=== PATIENT | male | born 1970 | race Caucasian/White ===

== ENCOUNTER 2024-06-09 17:13 | Inpatient (IN) | payer MEDICARE, OTHER ==
[~2024-06-09] VITALS: Ht 154.9 cm; Wt 83.0 kg
[~2024-06-09 17:13] MED LIST: LORA-259 PO; OLAN5TAB3 PO
[2024-06-09 17:42] LABS: BASOPHILS # (AUTO) 0.1 K/uL (0.0-0.2); BASOPHILS % (AUTO) 0.4 % (0.0-2.0); EOSINOPHILS # (AUTO) 0.3 K/uL (0.0-0.7); EOSINOPHILS % (AUTO) 1.1 % (0.0-6.0); HEMATOCRIT 26 % (39-51); HEMOGLOBIN 8.1 g/dL (13.5-17.5); LYMPHOCYTES # (AUTO) 0.8 K/uL (0.8-4.8); LYMPHOCYTES % (AUTO) 3.1 % (20.0-44.0); MEAN CORPUSCULAR HEMOGLOBIN 25 PG (26.0-33.0); MEAN CORPUSCULAR HGB CONC 32 g/dl (31.0-36.0); MEAN CORPUSCULAR VOLUME 78 fL (80-96); MONOCYTES # (AUTO) 1.1 K/uL (0.1-1.30); MONOCYTES % (AUTO) 4.5 % (2.0-12.0); NEUTROPHILS # (AUTO) 22.7 K/uL (1.8-8.9); NEUTROPHILS % (AUTO) 90.9 % (43.0-81.0); PLATELET COUNT (AUTO) 506 K/uL (150-450); RED BLOOD CELL COUNT(AUTO) 3.28 MIL/uL (4.5-6.0)
[2024-06-09] MEDS: IV NS 0.9% 1,000 ML BAG IV ONE (17:47)
[2024-06-09] MEDS: VANCOMYCIN 1 GM in IV D5W 250 ML IV ONE (17:48)
[2024-06-09] MEDS: PIPERACILLIN /TAZOBACTAM 3.375 G in IV D5W 50 ML IV ONE (17:49)
[2024-06-09] MEDS ORDERED: ACETAMINOPHEN ES 500 MG TABLET ONE (17:50)
[2024-06-09 17:53] LABS: CALCIUM, SERUM 8.5 mg/dL (8.5-10.1); CARBON DIOXIDE 29 mmol/L (21-32); CHLORIDE 107 mmol/L (98-107); CREATININE 1.4 mg/dL (0.6-1.3); GLUCOSE 97 mg/dL (74-106); POTASSIUM 4.8 mmol/L (3.5-5.1); SODIUM SERUM 144 mmol/L (136-145); UREA NITROGEN, BLOOD 47 mg/dL (7-18)
[2024-06-09] MEDS: ACETAMINOPHEN 325 MG TABLET PO ONE (17:53)
[2024-06-09 17:58] LABS: APPEARANCE,URINE TURBID (CLEAR); BILIRUBIN,URINE 1+ (NEGATIVE); BLOOD, URINE 3+ Ery/uL (NEGATIVE); COLOR,URINE DARK YELLOW (YELLOW); INR 1.06 (0.91-1.10); KETONES,URINE NEGATIVE (NEGATIVE); LEUKOCYTE ESTERASE ,URINE 3+ (NEGATIVE); NITRITE, URINE NEGATIVE (NEGATIVE); PARTIAL THROMBOPLASTIN TIME 26.5 SEC (24.3-34.3); PH,URINE 8.5 (5.0-8.0); PROTEIN,URINE 3+ mg/dl (NEGATIVE); PROTHROMBIN TIME 11.2 SECS (9.2-11.1); UGLUCOSE NEGATIVE (NEGATIVE); UROBILINOGEN,URINE 0.2 EU/dL (0.2)
[2024-06-09 17:59] LABS: ALANINE AMINOTRANSFERASE 10 U/L (12-78); ALBUMIN 1.7 g/dL (3.4-5.0); ALKALINE PHOSPHATASE 112 U/L (46-116); ASPARTATE AMINOTRANSFERASE 16 U/L (15-37); BILIRUBIN,DIRECT 0.1 mg/dL (0.0-0.2); BILIRUBIN,TOTAL 0.2 mg/dL (0.2-1.0); TOTAL PROTEIN, SERUM 7.3 g/dL (6.4-8.2)
[2024-06-09 18:01] LABS: LACTIC ACID 1.4 mmol/L (0.4-2.0)
[2024-06-09 18:09] LABS: ADD URINE CULTURE YES; BACTERIA,URINE 2+ /HPF (None Seen); RBC,URINE 81-100 /HPF (0-2); WBC,URINE 21-50 /HPF (0-3)
[2024-06-09 18:10] LABS: MUCUS,URINE Few /LPF (None Seen); SQUAMOUS EPITHELIAL CELL,UR None Seen /HPF (None Seen)
[2024-06-09 18:32] LABS: ABG BASE EXCESS -0.5 mmol/L (-2.0-3.0); ABG OXYGEN SATURATION 98.3 % (94.0-98.0); ABG PCO2 36.1 mmHg (35.0-48.0); ABG PH 7.433 (7.350-7.450); ABG PO2 116.8 mmHg (83.0-108.0); ABG TOTAL HEMOGLOBIN 8.3 G/dL (13.5-17.5); COHb 0.2 % (0.5-1.5); MetHb 0.2 % (0.0-1.5); O2Hb 97.9 % (94.0-97.0); PEEP,BG 5 cm H2O; SITE, ABG RIGHT RADIAL; VT, ABG 450 mL
[2024-06-09] MEDS ORDERED: AMIN30LI2 GT (19:58)
[2024-06-09] MEDS ORDERED: UPAD15TA GT (19:58)
[2024-06-09] MEDS ORDERED: BETH50TA2 GT (19:58)
[2024-06-09] MEDS ORDERED: BACL5TAB GT (19:58)
[2024-06-09] MEDS ORDERED: FERR220E2 GT (19:58)
[2024-06-09] MEDS ORDERED: MULT9LIQ6 GT (19:58)
[2024-06-09] MEDS ORDERED: ARGI1POW13 GT (19:58)
[2024-06-09] MEDS ORDERED: ACET160L44 GT ×2 (19:58)
[2024-06-09] MEDS ORDERED: CITR30SO GT (19:58)
[2024-06-09] MEDS ORDERED: OXYC15TA2 GT (19:58)
[2024-06-09] MEDS ORDERED: ASCO500L2 GT (19:58)
[2024-06-09] MEDS ORDERED: LEVE500S9 GT (19:58)
[2024-06-09] MEDS ORDERED: MIDO10TA GT (19:58)
[2024-06-09] MEDS ORDERED: ONDA4TAB5 GT (19:58)
[2024-06-09] MEDS ORDERED: LEVO75TA7 GT (19:58)
[2024-06-09] MEDS ORDERED: LACT1CAP72 GT (19:58)
[2024-06-09] MEDS ORDERED: FINA5TAB11 GT (19:58)
[2024-06-09] MEDS ORDERED: FAMO40OR5 GT (19:58)
[2024-06-09] MEDS ORDERED: DIPH25CA83 GT (19:58)
[2024-06-09] MEDS ORDERED: PSYL0.4C2 PO (19:58)
[2024-06-09] MEDS ORDERED: ATOR20TA GT (19:58)
[2024-06-09] MEDS ORDERED: MESA500C GT (19:58)
[2024-06-09] MEDS ORDERED: METO25TA6 GT (19:58)
[2024-06-09] MEDS ORDERED: BISA10SU11 RC (19:58)
[2024-06-09] MEDS ORDERED: PANT40SU2 GT (19:58)
[2024-06-09] MEDS ORDERED: MAGNESIUM HYDROXIDE 30 ML UDC PO PRN (21:30)
[2024-06-09] MEDS ORDERED: ACETAMINOPHEN 650 MG/SUPP.RECT RC PRN (21:30)
[2024-06-09] MEDS ORDERED: Z GUARD REMEDY 4 OZ OINT TP PRN (21:30)
[2024-06-09] MEDS ORDERED: MAG HYDROX/AL HYDROX/SIMETH 30 ML UDC PO PRN (21:30)
[2024-06-09] MEDS ORDERED: ALBUTEROL FS 2.5 MG/3 ML VIAL.NEB NEB PRN (23:00)
[2024-06-09] MEDS ORDERED: MIDODRINE HCL (5MG) 5 MG TABLET GT PRN (23:30)
[2024-06-09 23:51] LABS: HEMOGLOBIN 8.2 g/dL (13.5-17.5)
[2024-06-09] MEDS: VANCOMYCIN 1 GM /D5W 250 ML PB IV ONE (23:54)
[2024-06-10] VITALS (14 sets, daily range): BP systolic 127–145; BP diastolic 66–94; TEMP 97.8–100.1; O2SAT 98–100
[2024-06-10] MEDS: VANCOMYCIN 750 MG in IV D5W 250 ML IV ONE (00:17)
[2024-06-10] MEDS: PIPERACI/TAZO 3.375GM/D5W 50ML PB IV ONE (02:05)
[2024-06-10] MEDS: ZOSYN IVPB 3.375 G in IV D5W 50ml IV ONE (02:19)
[2024-06-10] MEDS: ACETAMINOPHEN 650 MG/20.3 ML UDC GT PRN (02:45)
[2024-06-10] MEDS: FERROUS SULFATE UDC 300 MG/5 ML UDC GT SCH (04:35)
[2024-06-10] MEDS: METOPROLOL TARTRATE 25 MG TABLET GT SCH (04:37)
[2024-06-10] MEDS: ASCORBIC ACID 500 MG TABLET GT SCH (04:37)
[2024-06-10 05:47] LABS: ABG BASE EXCESS 0.3 mmol/L (-2.0-3.0); ABG OXYGEN SATURATION 96.8 % (94.0-98.0); ABG PCO2 33.8 mmHg (35.0-48.0); ABG PH 7.468 (7.350-7.450); ABG PO2 87.9 mmHg (83.0-108.0); ABG TOTAL HEMOGLOBIN 7.4 G/dL (13.5-17.5); COHb 0.1 % (0.5-1.5); MetHb 0.4 % (0.0-1.5); O2Hb 96.3 % (94.0-97.0); SITE, ABG RIGHT RADIAL; VT, ABG 450 mL
[2024-06-10 07:15] LABS: EOSINOPHILS # (AUTO) 0.3 K/uL (0.0-0.7); LYMPHOCYTES # (AUTO) 0.5 K/uL (0.8-4.8); MONOCYTES # (AUTO) 0.7 K/uL (0.1-1.30); MONOCYTES % (AUTO) 4.9 % (2.0-12.0)
[2024-06-10 07:20] LABS: BASOPHILS % (AUTO) 0.3 % (0.0-2.0); EOSINOPHILS % (AUTO) 2.2 % (0.0-6.0); LYMPHOCYTES % (AUTO) 3.7 % (20.0-44.0); MEAN CORPUSCULAR HEMOGLOBIN 26 PG (26.0-33.0); MEAN CORPUSCULAR HGB CONC 33 g/dl (31.0-36.0); MEAN CORPUSCULAR VOLUME 80 fL (80-96); NEUTROPHILS # (AUTO) 12.6 K/uL (1.8-8.9); NEUTROPHILS % (AUTO) 88.9 % (43.0-81.0); PLATELET COUNT (AUTO) 373 K/uL (150-450); RED BLOOD CELL COUNT(AUTO) 2.62 MIL/uL (4.5-6.0); RED CELL DISTRIBUTION WIDTH 19.7 % (11.5-15.0); WHITE BLOOD COUNT (AUTO) 14.2 K/uL (4.3-11.0)
[2024-06-10] MEDS ORDERED: PANTOPRAZOLE 40 MG TABLET.DR PO SCH (07:30)
[2024-06-10 07:48] LABS: CALCIUM, SERUM 8.2 mg/dL (8.5-10.1); CREATININE 1.5 mg/dL (0.6-1.3); MAGNESIUM 1.9 mg/dL (1.8-2.4); PHOSPHORUS 3.8 mg/dL (2.5-4.9); POTASSIUM 4.2 mmol/L (3.5-5.1)
[2024-06-10 07:56] LABS: ALBUMIN 1.3 g/dL (3.4-5.0)
[2024-06-10 07:58] LABS: HEMATOCRIT 21 % (39-51); HEMOGLOBIN 6.8 g/dL (13.5-17.5)
[2024-06-10 08:06] LABS: THYROID STIMULATING HORMONE 3.47 uIU/mL (0.358-3.74)
[2024-06-10] MEDS: CEFEPIME 2 GM in IV D5W 100 ML IV SCH (08:24)
[2024-06-10] MEDS: FINASTERIDE (5 MG) 5 MG TABLET GT SCH (08:25)
[2024-06-10] MEDS: FUROSEMIDE 40 MG/4 ML VIAL IV SCH (08:25)
[2024-06-10] MEDS: BACLOFEN (10 MG) 10 MG TABLET GT SCH (08:25)
[2024-06-10] MEDS: PANTOPRAZOLE 40 MG/PACK PACK GT SCH (08:25)
[2024-06-10] MEDS: LEVOTHYROXINE SODIUM 75 MCG TABLET GT SCH (08:25)
[2024-06-10] MEDS: MULTIVIT W/MINERALS 1 TAB TABLET GT SCH (08:25)
[2024-06-10] MEDS: LACTOBACILLUS RHAMNOSUS GG 1 EACH CAP.SPRINK GT SCH (08:25)
[2024-06-10] MEDS: LEVETIRACETAM SOL (5 ML) 100 MG/ML UDC GT SCH (08:25)
[2024-06-10] MEDS: ARGININE/GLUTAMINE/CALCIUM BMB 1 EACH POWD.PACK GT SCH (08:27)
[2024-06-10] MEDS: BETHANECHOL CHLORIDE (25 MG) 25 MG TABLET GT SCH (09:00)
[2024-06-10] MEDS ORDERED: UPADACITINIB 45 MG GT SCH (09:00)
[2024-06-10] MEDS ORDERED: MESALAMINE 500 MG CAPSULE.ER PO SCH (09:00)
[2024-06-10 09:24] LABS: BASOPHILS % (MANUAL) 0 % (0.0-2.0); EOSINOPHILS % (MANUAL) 3 % (0-4); LYMPHOCYTES % (MANUAL) 2 % (16-48); MONOCYTES % (MANUAL) 5 % (0-11.0); NEUTROPHILS % (MANUAL) 90 (42-76); PLATELET ESTIMATE ADEQUATE
[2024-06-10 09:25] LABS: ANISOCYTOSIS 1+; ROULEAUX 1+
[2024-06-10] MEDS ORDERED: PIPERACILLIN /TAZOBACTAM 3.375 G in IV D5W 100 ML IV SCH (10:00)
[2024-06-10] MEDS: THERAHONEY GEL 1.5 OZ TUBE TP SCH (10:16)
[2024-06-10] MEDS ORDERED: VANCOMYCIN 750 MG in IV D5W 250 ML IV SCH (12:00)
[2024-06-10 12:47] LABS: HIV-1 p24 ANTIGEN NON REACTIVE (NONREACTIVE); HIV-1/2 ANTIBODY NON REACTIVE (NONREACTIVE)
[2024-06-10 13:03] LABS: OCCULT BLOOD STOOL NEGATIVE (NEGATIVE)
[2024-06-10] MEDS ORDERED: MAGNESIUM HYDROXIDE 30 ML UDC GT PRN (16:14)
[2024-06-10] MEDS ORDERED: MAG HYDROX/AL HYDROX/SIMETH 30 ML UDC GT PRN (16:14)
[2024-06-10 18:15] LABS: HEMOGLOBIN 7.3 g/dL (13.5-17.5)
[2024-06-10] MEDS: ATORVASTATIN 10 MG TABLET GT SCH (21:21)
[2024-06-10] MEDS: JEVITY 1.2 CAL 1,000 ML BOTTLE GT PRN (21:56)
[2024-06-10 23:20] LABS: HEMOGLOBIN 8.3 g/dL (13.5-17.5)
[2024-06-11] VITALS: BP 144/89; TEMP 98.8; O2SAT 100
[2024-06-11 03:06] LABS: FOLIC ACID > 20.0 ng/mL (>3.0)
[2024-06-11 04:00] VITALS: BP 148/90; TEMP 99; O2SAT 100
[2024-06-11 07:19] LABS: BASOPHILS % (AUTO) 0.4 % (0.0-2.0); EOSINOPHILS # (AUTO) 0.3 K/uL (0.0-0.7); EOSINOPHILS % (AUTO) 3.4 % (0.0-6.0); HEMATOCRIT 27 % (39-51); HEMOGLOBIN 8.6 g/dL (13.5-17.5); LYMPHOCYTES # (AUTO) 0.6 K/uL (0.8-4.8); LYMPHOCYTES % (AUTO) 6.1 % (20.0-44.0); MEAN CORPUSCULAR HEMOGLOBIN 26 PG (26.0-33.0); MEAN CORPUSCULAR HGB CONC 32 g/dl (31.0-36.0); MEAN CORPUSCULAR VOLUME 80 fL (80-96); MONOCYTES # (AUTO) 0.7 K/uL (0.1-1.30); MONOCYTES % (AUTO) 6.8 % (2.0-12.0); NEUTROPHILS # (AUTO) 8.1 K/uL (1.8-8.9); NEUTROPHILS % (AUTO) 83.3 % (43.0-81.0); PLATELET COUNT (AUTO) 451 K/uL (150-450); RED BLOOD CELL COUNT(AUTO) 3.36 MIL/uL (4.5-6.0); RED CELL DISTRIBUTION WIDTH 20.8 % (11.5-15.0); WHITE BLOOD COUNT (AUTO) 9.7 K/uL (4.3-11.0)
[2024-06-11 07:42] LABS: BILIRUBIN,TOTAL 0.4 mg/dL (0.2-1.0); CALCIUM, SERUM 8.4 mg/dL (8.5-10.1); CREATININE 1.6 mg/dL (0.6-1.3); PHOSPHORUS 4.1 mg/dL (2.5-4.9); POTASSIUM 3.9 mmol/L (3.5-5.1); TOTAL PROTEIN, SERUM 6.6 g/dL (6.4-8.2)
[2024-06-11 07:44] LABS: ALBUMIN 1.4 g/dL (3.4-5.0)
[2024-06-11 08:00] VITALS: BP 149/92; TEMP 99.5; O2SAT 98
[2024-06-11] MEDS: VANCOMYCIN HCL 1.25 GM in IV D5W 250 ML IV SCH (08:17)
[2024-06-11 12:00] VITALS: BP 144/95; TEMP 99; O2SAT 98
[2024-06-11 16:00] VITALS: BP 160/92; TEMP 98.4; O2SAT 97
[2024-06-11] MEDS: ONDANSETRON HCL/PF 4 MG/2 ML VIAL IVP PRN (17:19)
[2024-06-11 20:13] VITALS: BP 146/88; TEMP 98.2; O2SAT 97
[2024-06-11] MEDS: MUPIROCIN OINT 2% 22 GM TUBE NS SCH (21:14)
[2024-06-12] VITALS (7 sets, daily range): BP systolic 127–165; BP diastolic 77–97; TEMP 97.7–99.1; O2SAT 99–100
[2024-06-12 04:08] LABS: PTH, INTACT 25 pg/mL (15-65)
[2024-06-12 06:37] LABS: BASOPHILS % (AUTO) 0.4 % (0.0-2.0); EOSINOPHILS # (AUTO) 0.3 K/uL (0.0-0.7); HEMATOCRIT 29 % (39-51); HEMOGLOBIN 9.5 g/dL (13.5-17.5); LYMPHOCYTES # (AUTO) 0.7 K/uL (0.8-4.8); LYMPHOCYTES % (AUTO) 6.1 % (20.0-44.0); MEAN CORPUSCULAR HEMOGLOBIN 26 PG (26.0-33.0); MEAN CORPUSCULAR HGB CONC 32 g/dl (31.0-36.0); MEAN CORPUSCULAR VOLUME 81 fL (80-96); MONOCYTES # (AUTO) 0.8 K/uL (0.1-1.30); MONOCYTES % (AUTO) 7.6 % (2.0-12.0); NEUTROPHILS # (AUTO) 8.9 K/uL (1.8-8.9); NEUTROPHILS % (AUTO) 82.9 % (43.0-81.0); PLATELET COUNT (AUTO) 444 K/uL (150-450); RED BLOOD CELL COUNT(AUTO) 3.62 MIL/uL (4.5-6.0); RED CELL DISTRIBUTION WIDTH 20.4 % (11.5-15.0); WHITE BLOOD COUNT (AUTO) 10.7 K/uL (4.3-11.0)
[2024-06-12 07:00] LABS: CALCIUM, SERUM 8.6 mg/dL (8.5-10.1); CREATININE 1.6 mg/dL (0.6-1.3); POTASSIUM 3.5 mmol/L (3.5-5.1)
[2024-06-12] MEDS: hydrALAZINE HCL IV 20 MG VIAL IV PRN (08:57)
[2024-06-12] MEDS ORDERED: MUPIROCIN OINT 2% 22 GM TUBE TP SCH (09:00)
[2024-06-13] VITALS: BP 157/91; TEMP 98.1; O2SAT 100
[2024-06-13 04:00] VITALS: BP 159/93; TEMP 98.5; O2SAT 99
[2024-06-13 07:23] LABS: BASOPHILS % (AUTO) 0.3 % (0.0-2.0); EOSINOPHILS # (AUTO) 0.4 K/uL (0.0-0.7); EOSINOPHILS % (AUTO) 3.5 % (0.0-6.0); HEMATOCRIT 29 % (39-51); HEMOGLOBIN 9.3 g/dL (13.5-17.5); LYMPHOCYTES # (AUTO) 0.9 K/uL (0.8-4.8); LYMPHOCYTES % (AUTO) 7.8 % (20.0-44.0); MEAN CORPUSCULAR HEMOGLOBIN 26 PG (26.0-33.0); MEAN CORPUSCULAR HGB CONC 32 g/dl (31.0-36.0); MEAN CORPUSCULAR VOLUME 81 fL (80-96); MONOCYTES # (AUTO) 0.8 K/uL (0.1-1.30); MONOCYTES % (AUTO) 6.9 % (2.0-12.0); NEUTROPHILS # (AUTO) 9.3 K/uL (1.8-8.9); NEUTROPHILS % (AUTO) 81.5 % (43.0-81.0); PLATELET COUNT (AUTO) 484 K/uL (150-450); RED BLOOD CELL COUNT(AUTO) 3.58 MIL/uL (4.5-6.0); WHITE BLOOD COUNT (AUTO) 11.5 K/uL (4.3-11.0)
[2024-06-13 07:30] LABS: CALCIUM, SERUM 8.6 mg/dL (8.5-10.1); CREATININE 1.5 mg/dL (0.6-1.3); POTASSIUM 3.6 mmol/L (3.5-5.1)
[2024-06-13 08:00] VITALS: BP 166/88; TEMP 99.5; O2SAT 100
[2024-06-13 12:00] VITALS: BP 137/81; TEMP 100.2; O2SAT 100
[2024-06-13 16:00] VITALS: BP 162/87; TEMP 97.9; O2SAT 100
[2024-06-13] MEDS: CEFEPIME 2 GM in IV D5W 100 ML IV SCH (16:17)
[2024-06-13 20:00] VITALS: BP 115/60; TEMP 98.1; O2SAT 97
[2024-06-14] VITALS: BP 121/72; TEMP 98.5; O2SAT 98
[2024-06-14 04:00] VITALS: BP 114/70; TEMP 97.8; O2SAT 99
[2024-06-14 08:00] VITALS: BP 154/74; TEMP 99.3; O2SAT 100
[2024-06-14 08:24] LABS: BASOPHILS % (AUTO) 0.2 % (0.0-2.0); EOSINOPHILS # (AUTO) 0.4 K/uL (0.0-0.7); EOSINOPHILS % (AUTO) 2.4 % (0.0-6.0); HEMATOCRIT 29 % (39-51); HEMOGLOBIN 9.5 g/dL (13.5-17.5); MEAN CORPUSCULAR HEMOGLOBIN 26 PG (26.0-33.0); MEAN CORPUSCULAR HGB CONC 32 g/dl (31.0-36.0); MEAN CORPUSCULAR VOLUME 81 fL (80-96); MONOCYTES # (AUTO) 1.1 K/uL (0.1-1.30); MONOCYTES % (AUTO) 6.5 % (2.0-12.0); NEUTROPHILS # (AUTO) 13.8 K/uL (1.8-8.9); NEUTROPHILS % (AUTO) 84.9 % (43.0-81.0); PLATELET COUNT (AUTO) 476 K/uL (150-450); RED BLOOD CELL COUNT(AUTO) 3.66 MIL/uL (4.5-6.0); RED CELL DISTRIBUTION WIDTH 21.3 % (11.5-15.0); WHITE BLOOD COUNT (AUTO) 16.2 K/uL (4.3-11.0)
[2024-06-14 08:43] LABS: CALCIUM, SERUM 8.6 mg/dL (8.5-10.1); CREATININE 1.6 mg/dL (0.6-1.3); POTASSIUM 3.8 mmol/L (3.5-5.1)
[2024-06-14 12:00] VITALS: BP 131/79; TEMP 99.5; O2SAT 98
[2024-06-14 16:00] VITALS: BP 137/79; TEMP 99.2; O2SAT 99
[2024-06-14 20:00] VITALS: BP 98/71; TEMP 98.6; O2SAT 99
[2024-06-15] VITALS (8 sets, daily range): BP systolic 100–126; BP diastolic 65–93; TEMP 97.7–100; O2SAT 97–100
[2024-06-15 06:07] LABS: *SPE A/G RATIO 0.4 (0.7-1.7); *SPE ALBUMIN 1.7 g/dL (2.9-4.4); *SPE ALPHA-1-GLOBULIN 0.5 g/dL (0.0-0.4); *SPE ALPHA-2-GLOBULIN 1.2 g/dL (0.4-1.0); *SPE GLOBULIN, TOTAL 4.2 g/dL (2.2-3.9); *SPE M-SPIKE Not Observed g/dL (Not Observed); *SPE PROTEIN TOTAL 5.9 g/dL (6.0-8.5); *SPEGAMMA GLOBULIN 1.5 g/dL (0.4-1.8)
[2024-06-15 07:09] LABS: VITAMIN B1 THIAMINE,WB 268.1 nmol/L (66.5-200.0)
[2024-06-15 07:16] LABS: BASOPHILS # (AUTO) 0.1 K/uL (0.0-0.2); BASOPHILS % (AUTO) 0.5 % (0.0-2.0); EOSINOPHILS # (AUTO) 0.4 K/uL (0.0-0.7); EOSINOPHILS % (AUTO) 1.9 % (0.0-6.0); HEMATOCRIT 30 % (39-51); HEMOGLOBIN 9.7 g/dL (13.5-17.5); LYMPHOCYTES # (AUTO) 1.3 K/uL (0.8-4.8); LYMPHOCYTES % (AUTO) 7.1 % (20.0-44.0); MEAN CORPUSCULAR HEMOGLOBIN 26 PG (26.0-33.0); MEAN CORPUSCULAR HGB CONC 32 g/dl (31.0-36.0); MEAN CORPUSCULAR VOLUME 82 fL (80-96); MONOCYTES # (AUTO) 1.3 K/uL (0.1-1.30); MONOCYTES % (AUTO) 7.1 % (2.0-12.0); NEUTROPHILS # (AUTO) 15.5 K/uL (1.8-8.9); NEUTROPHILS % (AUTO) 83.4 % (43.0-81.0); PLATELET COUNT (AUTO) 460 K/uL (150-450); RED CELL DISTRIBUTION WIDTH 21.7 % (11.5-15.0); WHITE BLOOD COUNT (AUTO) 18.6 K/uL (4.3-11.0)
[2024-06-15] MEDS ORDERED: VANCOMYCIN HCL 1.25 GM in IV D5W 250 ML IV ONE (07:30)
[2024-06-15 07:31] LABS: CALCIUM, SERUM 9.1 mg/dL (8.5-10.1); CREATININE 1.6 mg/dL (0.6-1.3)
[2024-06-15] MEDS ORDERED: TIGECYCLINE 100 MG in IV D5W 100 ML IV SCH (09:30)
[2024-06-15] MEDS: MEROPENEM 1 G in IV NS 0.9% 100 ML IV SCH (09:50)
[2024-06-15] MEDS: IV 1/2NS 1000 ML 1,000 ML IV PRN (13:27)
[2024-06-15 13:51] LABS: APPEARANCE,URINE SLIGHTLY CLOUDY (CLEAR); BILIRUBIN,URINE NEGATIVE (NEGATIVE); BLOOD, URINE 3+ Ery/uL (NEGATIVE); COLOR,URINE YELLOW (YELLOW); KETONES,URINE 1+ mg/dL (NEGATIVE); LEUKOCYTE ESTERASE ,URINE TRACE (NEGATIVE); NITRITE, URINE NEGATIVE (NEGATIVE); PROTEIN,URINE 2+ mg/dl (NEGATIVE); UGLUCOSE NEGATIVE (NEGATIVE); UROBILINOGEN,URINE 0.2 EU/dL (0.2)
[2024-06-15 14:01] LABS: BACTERIA,URINE Moderate /HPF (None Seen); SQUAMOUS EPITHELIAL CELL,UR None Seen /HPF (None Seen)
[2024-06-15 14:02] LABS: ADD URINE CULTURE YES
[2024-06-15 14:04] LABS: CALCIUM OXALATE CRYSTALS,UR Moderate /HPF (None Seen)
[2024-06-15 20:06] LABS: METHYLMALONIC ACID 447 nmol/L (0-378)
[2024-06-15] MEDS: TIGECYCLINE 100 MG in IV D5W 100 ML IV ONE (20:56)
[2024-06-15] MEDS ORDERED: TIGECYCLINE 50 MG in IV D5W 50 ML IV SCH (21:30)
[2024-06-16] VITALS: BP 120/77; TEMP 99; O2SAT 100
[2024-06-16 04:00] VITALS: BP 114/74; TEMP 97.9; O2SAT 100
[2024-06-16 07:58] LABS: HEMOGLOBIN 9.9 g/dL (13.5-17.5)
[2024-06-16 08:00] VITALS: BP 112/87; TEMP 97.9; O2SAT 95
[2024-06-16 08:05] LABS: CALCIUM, SERUM 8.4 mg/dL (8.5-10.1); CREATININE 1.6 mg/dL (0.6-1.3); POTASSIUM 4.6 mmol/L (3.5-5.1)
[2024-06-16 08:14] LABS: BASOPHILS % (AUTO) 0.1 % (0.0-2.0); EOSINOPHILS # (AUTO) 0.6 K/uL (0.0-0.7); EOSINOPHILS % (AUTO) 2.6 % (0.0-6.0); HEMATOCRIT 31 % (39-51); LYMPHOCYTES # (AUTO) 1.4 K/uL (0.8-4.8); MEAN CORPUSCULAR HEMOGLOBIN 26 PG (26.0-33.0); MEAN CORPUSCULAR HGB CONC 32 g/dl (31.0-36.0); MEAN CORPUSCULAR VOLUME 81 fL (80-96); MONOCYTES # (AUTO) 0.9 K/uL (0.1-1.30); MONOCYTES % (AUTO) 4.1 % (2.0-12.0); NEUTROPHILS # (AUTO) 19.6 K/uL (1.8-8.9); NEUTROPHILS % (AUTO) 87.2 % (43.0-81.0); PLATELET COUNT (AUTO) 467 K/uL (150-450); RED BLOOD CELL COUNT(AUTO) 3.85 MIL/uL (4.5-6.0); RED CELL DISTRIBUTION WIDTH 22.1 % (11.5-15.0); WHITE BLOOD COUNT (AUTO) 22.5 K/uL (4.3-11.0)
[2024-06-16] MEDS: TIGECYCLINE 50 MG in IV D5W 50 ML IV SCH (08:21)
[2024-06-16 09:06] LABS: ANISOCYTOSIS 2+
[2024-06-16 12:00] VITALS: BP 110/71; TEMP 97.9; O2SAT 95
[2024-06-16 16:00] VITALS: BP 110/71; TEMP 97.8; O2SAT 99
[2024-06-16 20:00] VITALS: BP 120/71; TEMP 98.2; O2SAT 99
[2024-06-17] VITALS: BP 118/76; TEMP 97.9; O2SAT 99
[2024-06-17 04:00] VITALS: BP 111/72; TEMP 98.1; O2SAT 100
[2024-06-17 07:43] LABS: BASOPHILS % (AUTO) 0.1 % (0.0-2.0); EOSINOPHILS # (AUTO) 0.7 K/uL (0.0-0.7); HEMATOCRIT 28 % (39-51); HEMOGLOBIN 8.9 g/dL (13.5-17.5); LYMPHOCYTES # (AUTO) 1.1 K/uL (0.8-4.8); LYMPHOCYTES % (AUTO) 6.3 % (20.0-44.0); MEAN CORPUSCULAR HEMOGLOBIN 26 PG (26.0-33.0); MEAN CORPUSCULAR HGB CONC 32 g/dl (31.0-36.0); MEAN CORPUSCULAR VOLUME 81 fL (80-96); MONOCYTES % (AUTO) 5.9 % (2.0-12.0); NEUTROPHILS # (AUTO) 14.5 K/uL (1.8-8.9); NEUTROPHILS % (AUTO) 83.7 % (43.0-81.0); PLATELET COUNT (AUTO) 355 K/uL (150-450); RED BLOOD CELL COUNT(AUTO) 3.44 MIL/uL (4.5-6.0); RED CELL DISTRIBUTION WIDTH 22.4 % (11.5-15.0); WHITE BLOOD COUNT (AUTO) 17.3 K/uL (4.3-11.0)
[2024-06-17 07:56] LABS: CALCIUM, SERUM 8.2 mg/dL (8.5-10.1); CREATININE 1.1 mg/dL (0.6-1.3); MAGNESIUM 1.8 mg/dL (1.8-2.4); PHOSPHORUS 4.3 mg/dL (2.5-4.9); POTASSIUM 4.1 mmol/L (3.5-5.1)
[2024-06-17 08:00] VITALS: BP 118/69; TEMP 97.5; O2SAT 99
[2024-06-17 12:00] VITALS: BP 113/72; TEMP 97.7; O2SAT 100
[2024-06-17 16:00] VITALS: BP 110/79; TEMP 98; O2SAT 99
[2024-06-17] MEDS: SILVER NITRATE APPLICATOR 1 EA BOX TP ONE (16:57)
[2024-06-17 20:00] VITALS: BP 110/79; TEMP 98.1; O2SAT 99
[2024-06-18] VITALS (7 sets, daily range): BP systolic 126–151; BP diastolic 79–88; TEMP 98.2–100.2; O2SAT 98–100
[2024-06-18 07:28] LABS: BASOPHILS % (AUTO) 0.1 % (0.0-2.0); EOSINOPHILS # (AUTO) 0.5 K/uL (0.0-0.7); EOSINOPHILS % (AUTO) 3.7 % (0.0-6.0); HEMATOCRIT 29 % (39-51); LYMPHOCYTES # (AUTO) 0.7 K/uL (0.8-4.8); LYMPHOCYTES % (AUTO) 5.1 % (20.0-44.0); MEAN CORPUSCULAR HEMOGLOBIN 26 PG (26.0-33.0); MEAN CORPUSCULAR HGB CONC 32 g/dl (31.0-36.0); MEAN CORPUSCULAR VOLUME 82 fL (80-96); MONOCYTES # (AUTO) 1.1 K/uL (0.1-1.30); NEUTROPHILS # (AUTO) 11.4 K/uL (1.8-8.9); NEUTROPHILS % (AUTO) 83.1 % (43.0-81.0); PLATELET COUNT (AUTO) 348 K/uL (150-450); RED BLOOD CELL COUNT(AUTO) 3.49 MIL/uL (4.5-6.0); RED CELL DISTRIBUTION WIDTH 22.3 % (11.5-15.0); WHITE BLOOD COUNT (AUTO) 13.7 K/uL (4.3-11.0)
[2024-06-18 07:43] LABS: CALCIUM, SERUM 8.2 mg/dL (8.5-10.1); CREATININE 1.1 mg/dL (0.6-1.3); MAGNESIUM 1.6 mg/dL (1.8-2.4); PHOSPHORUS 4.5 mg/dL (2.5-4.9); POTASSIUM 4.4 mmol/L (3.5-5.1)
[2024-06-18] MEDS: MAGNESIUM OXIDE 400 MG TABLET NG ONE (09:55)
[2024-06-18] MEDS: SILVER NITRATE APPLICATOR 1 EA BOX TP ONE (16:34)
[2024-06-19] VITALS: BP 140/83; TEMP 99.1; O2SAT 100
[2024-06-19 04:00] VITALS: BP 139/82; TEMP 98.8; O2SAT 100
[2024-06-19 07:07] LABS: BASOPHILS # (AUTO) 0.1 K/uL (0.0-0.2); BASOPHILS % (AUTO) 0.5 % (0.0-2.0); EOSINOPHILS # (AUTO) 0.3 K/uL (0.0-0.7); EOSINOPHILS % (AUTO) 3.2 % (0.0-6.0); HEMATOCRIT 26 % (39-51); HEMOGLOBIN 8.4 g/dL (13.5-17.5); LYMPHOCYTES % (AUTO) 10.1 % (20.0-44.0); MEAN CORPUSCULAR HEMOGLOBIN 26 PG (26.0-33.0); MEAN CORPUSCULAR HGB CONC 32 g/dl (31.0-36.0); MEAN CORPUSCULAR VOLUME 82 fL (80-96); MONOCYTES % (AUTO) 10.2 % (2.0-12.0); NEUTROPHILS # (AUTO) 7.8 K/uL (1.8-8.9); PLATELET COUNT (AUTO) 329 K/uL (150-450); RED BLOOD CELL COUNT(AUTO) 3.19 MIL/uL (4.5-6.0); RED CELL DISTRIBUTION WIDTH 22.3 % (11.5-15.0); WHITE BLOOD COUNT (AUTO) 10.2 K/uL (4.3-11.0)
[2024-06-19 07:18] LABS: CALCIUM, SERUM 7.9 mg/dL (8.5-10.1); CREATININE 0.9 mg/dL (0.6-1.3); MAGNESIUM 1.8 mg/dL (1.8-2.4); PHOSPHORUS 4.5 mg/dL (2.5-4.9); POTASSIUM 4.7 mmol/L (3.5-5.1)
[2024-06-19 08:20] VITALS: BP 128/51; TEMP 98.4; O2SAT 100
[2024-06-19 12:23] VITALS: BP 112/73; TEMP 99; O2SAT 100
[2024-06-19] MEDS ORDERED: FURO-144 PO (12:42)
[2024-06-19] MEDS ORDERED: TIGE50VI IV (12:42)
[2024-06-19] MEDS ORDERED: COLL30OI TP (12:42)
[2024-06-19] MEDS ORDERED: MERO1VIA23 IV (12:42)
[2024-06-19 13:03] VITALS: BP 112/73
== END 2024-06-19 15:40 | DRG 981 ==
LOC: ER 17:17 → MED 18:40 → TELE-TD 19:09 → TELE1 06-11 10:45
PROVIDERS: ADMIT Surgery Vascular Surgery; ATTEND Student in an Organized Health Care Education/Training Program
PROC: 5A1955Z Respiratory Ventilation, Greater than 96 Consecutive Hours (ICD-10-PCS; principal; 2024-06-09)
PROC: 30233N1 Transfusion of Nonautologous Red Blood Cells into Peripheral Vein, Percutaneous Approach (ICD-10-PCS; 2024-06-10)
PROC: 0KBN0ZZ Excision of Right Hip Muscle, Open Approach (ICD-10-PCS; 2024-06-18)
PROC: 0KBP0ZZ Excision of Left Hip Muscle, Open Approach (ICD-10-PCS; 2024-06-18)
DX: T83.518A Infection and inflammatory reaction due to other urinary catheter, initial encounter (principal); A41.9 Sepsis, unspecified organism; E43 Unspecified severe protein-calorie malnutrition; I50.33 Acute on chronic diastolic (congestive) heart failure; L89.154 Pressure ulcer of sacral region, stage 4; J15.9 Unspecified bacterial pneumonia; J69.0 Pneumonitis due to inhalation of food and vomit; N17.0 Acute kidney failure with tubular necrosis; J96.20 Acute and chronic respiratory failure, unspecified whether with hypoxia or hypercapnia; N39.0 Urinary tract infection, site not specified; D68.59 Other primary thrombophilia; Z99.11 Dependence on respirator [ventilator] status; I13.0 Hypertensive heart and chronic kidney disease with heart failure and stage 1 through stage 4 chronic kidney disease, or unspecified chronic kidney disease; J98.11 Atelectasis; G93.49 Other encephalopathy; E03.9 Hypothyroidism, unspecified; D64.9 Anemia, unspecified; E66.01 Morbid (severe) obesity due to excess calories; E78.5 Hyperlipidemia, unspecified; G40.909 Epilepsy, unspecified, not intractable, without status epilepticus; G93.89 Other specified disorders of brain; I48.91 Unspecified atrial fibrillation; J32.0 Chronic maxillary sinusitis; R13.10 Dysphagia, unspecified; M89.8X9 Other specified disorders of bone, unspecified site; N18.9 Chronic kidney disease, unspecified; Z93.0 Tracheostomy status; Z93.1 Gastrostomy status; E86.9 Volume depletion, unspecified; E88.09 Other disorders of plasma-protein metabolism, not elsewhere classified; Z86.73 Personal history of transient ischemic attack (TIA), and cerebral infarction without residual deficits; Z74.09 Other reduced mobility; S81.801A Unspecified open wound, right lower leg, initial encounter; X58.XXXA Exposure to other specified factors, initial encounter; Y93.9 Activity, unspecified; Y92.129 Unspecified place in nursing home as the place of occurrence of the external cause; Z22.322 Carrier or suspected carrier of Methicillin resistant Staphylococcus aureus; Y84.6 Urinary catheterization as the cause of abnormal reaction of the patient, or of later complication, without mention of misadventure at the time of the procedure; B96.4 Proteus (mirabilis) (morganii) as the cause of diseases classified elsewhere; B96.1 Klebsiella pneumoniae [K. pneumoniae] as the cause of diseases classified elsewhere
CPT/HCPCS: 31720; 36415; 36600; 70450-TC; 71045-TC; 76770-TC; 80048-TC; 80053-TC; 80076-TC; 80202-TC; 81001; 82040-TC; 82272-TC; 82550-TC; 82607-TC; 82803-TC; 83605-TC; 83735-TC; 83880; 83921; 83970; 84100-TC; 84155; 84165; 84425; 84443-TC; 84484-TC; 85025-TC; 85027-TC; 85730-TC; 86803; 86850-TC; 87040-TC; 87081-TC; 87086-TC; 87806; 93307-TC; 94002-TC; 94003-TC; 94640-TC; 94760-TC; 94762-TC; 94799-TC; 99082-TC; A4223; A6403; A7526; G0378; J0360; J0692; J1940; J1953; J2185; J2405; J2543; J3243; J3370; J3371; J3490; J7030; J7050; J7060; P9016